=== PATIENT | female | born 1965 | race Caucasian/White ===

== ENCOUNTER 2017-11-08 01:30 | Emergency (ER) | payer MEDICARE, OTHER ==
[~2017-11-08] VITALS: Ht 172.7 cm; Wt 102.6 kg
[~2017-11-08 01:30] MED LIST: ACET-784 PO; AMLO-511 PO; AUD NEB; BENZ1I IM; BISA5TAB12 PO; CLON1PAT12 TD; DOCU250C91 PO; FLUP10 PO; FLUPH2.5I IM; IPRNEB IH; LABE100 PO; LEVE500T8 PO; LEVO50 PO; LOPE2 PO; MAGOX PO; O2 IH; OMEP20 PO; PANT40TA25 PO
[2017-11-08 02:21] LABS: BASOPHILS % (AUTO) 0.6 % (0.0-2.0); EOSINOPHILS % (AUTO) 1.5 % (1.0-6.0); HEMOGLOBIN 14.2 g/dL (12.0-16.0); LYMPHOCYTES # (AUTO) 2.1 K/uL (1.0-4.8); MEAN CORPUSCULAR HEMOGLOBIN 28.2 pg (26.0-34.0); MEAN CORPUSCULAR HGB CONC 33.9 G/dL (31.0-37.0); MEAN CORPUSCULAR VOLUME 83 fL (80-100); MONOCYTES # (AUTO) 0.5 K/uL (0.1-1.0); MONOCYTES % (AUTO) 6.9 % (2.0-9.0); NEUTROPHILS # (AUTO) 4.1 K/uL (1.8-7.7); PLATELET COUNT (AUTO) 174 K/uL (150-450); RED BLOOD CELL COUNT(AUTO) 5.04 MIL/uL (4.00-5.20)
[2017-11-08 02:30] LABS: AMMONIA 35 umol/L (11-32); TROPONIN I < 0.02 ng/mL (0.00-0.05)
[2017-11-08 02:37] LABS: ANION GAP 8 mmol/L (8-16); CALCIUM, TOTAL 8.5 mg/dL (8.8-10.5); CARBON DIOXIDE 24 mmol/L (22-29); CHLORIDE 109 mmol/L (98-107); CREATININE 0.99 mg/dL (0.60-1.30); GLOMERULAR FILTR. RATE CALC 59 mL/min (>60); GLUCOSE,RANDOM 102 mg/dL (70-110); POTASSIUM 3.5 mmol/L (3.5-5.1); SODIUM SERUM 141 mmol/L (136-145); UREA NITROGEN, BLOOD 13 mg/dL (7-18)
[2017-11-08 02:40] LABS: ALANINE AMINOTRANSFERASE 23 U/L (12-78); ALBUMIN 3.4 g/dL (3.4-5.0); ALKALINE PHOSPHATASE 122 U/L (46-116); ASPARTATE AMINOTRANSFERASE 10 U/L (15-37); BILIRUBIN,TOTAL 0.2 mg/dL (0.1-1.0); CREATINE KINASE, TOTAL 39 U/L (26-192); TOTAL PROTEIN, SERUM 6.7 g/dL (6.4-8.2)
[2017-11-08] MEDS ORDERED: OMEG-135 PO (03:01)
[2017-11-08] MEDS ORDERED: DIVA-78 PO (03:01)
[2017-11-08] MEDS ORDERED: OLAN5TAB27 PO (03:01)
[2017-11-08] MEDS ORDERED: TOPI100T37 PO (03:01)
[2017-11-08] MEDS ORDERED: LACT10SO8 PO (03:01)
[2017-11-08] MEDS ORDERED: OLAN20TA2 PO (03:01)
[2017-11-08] MEDS ORDERED: DIPH25CA85 PO (03:01)
[2017-11-08] MEDS ORDERED: SENN-34 PO (03:01)
[2017-11-08] MEDS ORDERED: MOM30 PO (03:01)
[2017-11-08] MEDS ORDERED: LORA-192 PO (03:01)
[2017-11-08] MEDS ORDERED: CLON0.5T12 PO (03:01)
[2017-11-08 03:24] LABS: APPEARANCE,URINE CLEAR (CLEAR); BILIRUBIN,URINE NEGATIVE (NEGATIVE); GLUCOSE, URINE (UA) NEGATIVE (NEGATIVE); KETONES,URINE NEGATIVE (NEGATIVE); LEUKOCYTE ESTERASE ,URINE NEGATIVE (NEGATIVE); NITRATE,URINE NEGATIVE (NEGATIVE); OCCULT BLOOD,URINE NEGATIVE (NEGATIVE); PH,URINE 6.5 (5.0-8.0); PROTEIN,URINE NEGATIVE (NEGATIVE); UROBILINOGEN,URINE 0.2 mg/dL (<=1.0)
[2017-11-08] MEDS ORDERED: SODIUM CHLORIDE 0.9% 500 ML IV ONE (03:45)
[2017-11-08 05:28] VITALS: BP 117/70
== END 2017-11-08 05:29 | disposition home or self-care (01) ==
LOC: EMS 01:32
DX: E86.0 Dehydration (principal); F20.0 Paranoid schizophrenia; J44.9 Chronic obstructive pulmonary disease, unspecified; E03.9 Hypothyroidism, unspecified
CPT/HCPCS: 36415; 71045; 80053; 81003; 82140; 82550; 84484; 85025; 93005; 96360; 96361; 99285; J7040